=== PATIENT | male | born 2005 | race Caucasian/White ===

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

== ENCOUNTER 2024-01-05 12:28 | Outpatient (REF) | payer OTHER, SELFPAY ==
[2024-01-09 00:30] LABS: Tissue Transglut Ab IgA <1.02 FLU (0.00-4.99)
== END 2024-01-05 12:29 | disposition home or self-care (01) ==
LOC: NPINS 12:28
PROVIDERS: PCP Internal Medicine
DX: K58.1 Irritable bowel syndrome with constipation (principal)
CPT/HCPCS: 86258; 86364

== ENCOUNTER 2024-09-24 10:54 | Outpatient (CLI) | payer OTHER, SELFPAY ==
--- OUTSIDE RECORDS SUMMARY | 2024-09-24 15:18 | XMS_ITS | Clinical Summary ---
Author Organization [facility] Address [address] [place] [address] Care Team Providers Care Decorative Cutting Machine Tender Name Role Phone Unavailable Primary Care Provider Unavailabl e Immunizations Name Administration Dates Next Due Influenza, H1N1, Injectable (Flu 09) 01/27/2010, 10/16/2009 Influenza, Live, Intranasal, Quadrivalent (LAIV4) 09/06/2010 Influenza, Seasonal 08/19/2008, 7,09/11/2006,2004,02/10/2005,2004 Social History Tobacco Use Types Packs/Day Years Used Date Smoking Tobacco: Never Assessed Sex and Gender Information Value Date Recorded Sex Assigned at Not on file Legal Sex Male 12:06 AM [facility] Gender Identity Not on file Sexual Orientation Not on file Plan of Treatment Health Maintenance Due Date Last Done Comments Chlamydia Screening 2004 Nutrition Education 2004 Tetanus Vaccines (DTaP,Tdap, Td) (1 - Tdap) 2011 HPV Vaccines (1 of 3 - Male 3-dose series) 2015 Behavioral Health Screening 2016 COVID-19 Vaccines ( season) 2024 Influenza Vaccine (#1) 2024 0, 01/27/2010, 10/16/2009, Additional history exists
--- OUTSIDE RECORDS SUMMARY | 2024-09-24 15:18 | XMS_ITS | Referral Summary ---
Author Organization [facility] Address [address], [address] [place] [address] Care Team Providers Care Parking Lot Manager Name Role Phone Unavailable Primary Care Provider Unavailabl e Source Comments [facility] (Labor and Delivery) documents do not appear in the Encounter Summary [facility] Social History Tobacco Use Types Packs/Day Years Used Date Smoking Tobacco: Never Assessed Sex and Gender Information Value Date Recorded Sex Assigned at Not on file Gender Identity Not on file Sexual Orientation Not on file Plan of Treatment Not on file
--- OUTSIDE RECORDS SUMMARY | 2024-09-24 15:18 | XMS_ITS | Clinical Summary ---
Author Organization [facility] Address [address] [place] [address], [address] [place] [address] Care Team Providers Care Payroll Consultant Name Role Phone Unavailable Primary Care Provider Unavailabl e Source Comments [facility] (Labor and Delivery) documents do not appear in the Encounter Summary [facility] Social History Tobacco Use Types Packs/Day Years Used Date Smoking Tobacco: Never Assessed Sex and Gender Information Value Date Recorded Sex Assigned at Not on file Gender Identity Not on file Sexual Orientation Not on file Plan of Treatment Health Maintenance Due Date Last Done Comments COVID-19 Vaccine ( season) 2024 11/16/2021, 03/20/2021, 02/20/2021 Influenza Vaccine (#1) 2024 , 09/16/2021, 09/20/2020, Additional history exists Tetanus Diphtheria and Pertussis Vaccines (8 - Td or Tdap) 05/25/2031 05/25/2021, 05/19/2015, 06/03/2009, Additional history exists Zoster Vaccines (1 of 2) 2054 Pneumococcal Vaccine: Pediatrics (0 to 5 Years) and At-Risk Patients (6 to 64 Years) Aged Out 05/18/2005, 2004, 2004, Additional history exists No longer eligible based on patient's age to complete this topic Hib Vaccine Completed 08/10/2005, 10/26, 2004, Additional history exists Hepatitis B Vaccine Completed 11/13/2005, 02/10/2005, 2004 Hepatitis A Vaccine Completed 05/18/2006, 5 IPV Vaccine Completed 06/03/2009, 07/27, 2004, Additional history exists HPV Vaccine Completed 12/20/2017, 05/16/2017 Meningococcal Vaccine (MCV4) Completed 05/25/2021, 05/19/2015 Rotavirus Vaccine Aged Out No longer eligible based on patient's age to complete this topic
--- OUTSIDE RECORDS SUMMARY | 2024-09-24 15:18 | XMS_ITS | Clinical Summary ---
Author Organization [facility] Address [address], [place] [address] Phone Care Team Providers Care Practice Billing Associate Name Role Phone Doyle Cespedes M.D. Primary Care Provider + Source Comments [facility], [place], [place] is fully implemented on [employer]. [facility] Medications * Be aware that medications may not be up to date as of this document. Always verify current medications with patient. Medication Sig Dispensed Refills Start Date End Date Status MULTIVITAMIN PO None Entered Active OMEGA-3 PO None Entered Active UNIDENTIFIED MEDICATION echinachea and astrugula, occasionally Active LORATADINE PO as needed Active Active Problems Problem Noted Date Diagnosed Date Otorrhea 01/17/2008 Overview: Replacing diagnoses that were inactivated after the 02/24 non-regulatory IMO import Acute nonsuppurative otitis media 04/20/2006 Overview: Replacing diagnoses that were inactivated after the 02/24 non-regulatory IMO import OTHER AND UNSPECIFIED CHRONIC NONSUPPURATIVE DEJON TIS MEDIA 04/20/2006 Surgical History Surgery Date Site/Laterality Comments ENT OTHER GI scope and biopsy OK TYMPANOSTOMY GENERAL ANESTHESIA 04-24-06 Bilateral myringotomy and tubes OK CIRCUMCISION Social History Tobacco Use Types Packs/Day Years Used Date Smoking Tobacco: Never Assessed Community Connections Answer Date Recor ded Caregiver PCP help Not on file 05/28/2019 Child PCP help Not on file 05/28/2019 Potential social isolation Not assesed 05/28 Appointment help Not on file 05/28/2019 Benefits help needed: Not on file 05/28/2019 Education concerns Not assesed 05/28/2019 Alcohol / Marijuana Use Answer Date Rec orded Alcohol/Marijuana- Caregiver: Not on file Alcohol last 12 mos: Not on file 10/19/2023 Marijuana- Patient Use: No 10/19/20 Tobacco Use Answer Date Recorded Tobacco: Caregiver Use Not on file Tobacco- Patient Use: No 10/19/2023 Depression risk Answer Date Recorded Caregiver Depression: Not on file 06/14/2022 Caregiver suicidal thoughts: Not on file Last PHQ-2 Not on file 06/14/2022 Last PHQ-9 Not on file 06/14/2022 Last EPDS Not on file 06/14/2022 Last EPDS self harm item: Not on file 2021 Transportation Answer Date Recorded Transportation Not on file 10/19/2023 [id number] 10/19/2023 Substance Use Answer Date Recorded Substances- Caregiver Use Not on file 2022 Substances- Patient Use: No 023 Sex and Gender Information Value Date Recorded Sex Assigned at Not on file Gender Identity Not on file Sexual Orientation Not on file Last Filed Vital Signs Vital Sign Reading Time Taken Comments Blood Pressure - - Pulse - - Temperature - - Respiratory Rate - - Oxygen Saturation - - Inhaled Oxygen Concentration - - Weight 16.8 kg (37 lb 0.6 oz) 05/03/2009 10:13 A M MDT Height - - Body Mass Index - - Plan of Treatment Not on file Care Teams Practice Billing Associate Relationship Specialty Start Date End Date Doyle Cespedes M.D. REMYI: [phone] [address], [address] [facility], [facility] [place] [address] PCP - General 02/05/08
--- OUTSIDE RECORDS SUMMARY | 2024-09-24 15:19 | XMS_ITS | Referral Summary ---
Author Organization [facility] Address [address], [place] [address] Phone Care Team Providers Care Delinquent Notice Machine Operator Name Role Phone Doyle Cespedes M.D. Primary Care Provider + Source Comments [facility], [place], [place] is fully implemented on [employer]. [facility] Medications * Be aware that medications [...] UNSPECIFIED CHRONIC NONSUPPURATIVE DEJON TIS MEDIA 04/20/2006 Social History Tobacco Use Types Packs/Day Years [...] Date Recorded Transportation Not on file 10/19/2023 [id number] 10/19/2023 Substance Use Answer Date Recorded Substances- [...] of Treatment Not on file Care Teams Delinquent Notice Machine Operator Relationship Specialty Start Date End Date Doyle Cespedes M.D. [address] [facility], [place] [address] PCP - General 02/05/08
== END 2024-09-24 10:55 | disposition home or self-care (01) ==
LOC: NFLDREF 15:16
PROVIDERS: PCP Internal Medicine; Referring Provider Internal Medicine; Visit Provider Internal Medicine
DX: R10.9 Unspecified abdominal pain (principal)
CPT/HCPCS: 87086

== ENCOUNTER 2025-02-12 10:46 | Outpatient (CLI) | payer OTHER, SELFPAY | END 2025-02-12 10:47 | disposition home or self-care (01) | LOC: NFLDREF 10:48 | PROVIDERS: PCP Internal Medicine; Visit Provider Internal Medicine | DX: R10.9 Unspecified abdominal pain (principal) | CPT/HCPCS: 80053 ==

== ENCOUNTER 2025-02-17 13:31 | Outpatient (CLI) | payer OTHER, SELFPAY ==
--- NOTE | 2025-02-17 13:45 | CRLHL7_ITS ---
For Patients: As a result of the Century Cures Act, medical imaging exams and procedure reports are released immediately into your electronic medical record. You may view this report before your referring provider. If you have questions, please contact your health care provider. INDICATION: Abdominal pain TECHNIQUE: Ultrasound abdomen limited. Sonographic images of the right upper quadrant were obtained using martin-scale, color and spectral Doppler images. COMPARISON: 12/27/[address] FINDINGS: Liver: Normal in size and echotexture. No masses. No intrahepatic biliary dilatation. Gallbladder: No stones or sludge. Normal wall thickness. No pericholecystic fluid. Common bile duct: 2 mm. Pancreas: Normal. Right kidney: Normal in size. Normal echotexture and cortex. No suspicious masses, stones, or hydronephrosis. Vasculature: Normal flow direction in the main portal vein. IMPRESSION: Normal right upper quadrant ultrasound. Dictated by Agapito Murguia MD @ 02/18/2025 2:08:01 PM (Electronically Signed)
== END 2025-02-17 13:32 | disposition home or self-care (01) ==
LOC: US 13:33
PROVIDERS: Visit Provider Internal Medicine
DX: R10.9 Unspecified abdominal pain (principal)
CPT/HCPCS: 76705